=== PATIENT | male | born 1990 | race Caucasian/White ===

== ENCOUNTER 2025-02-26 10:10 | Emergency (ER) | payer OTHER ==
[2025-02-26] MEDS ORDERED: IBUP200C25 PO (10:19)
[2025-02-26] MEDS ORDERED: ISOVUE-370 76% 100 ML VIAL As Ordered ONE (11:10)
[2025-02-26 11:15] LABS: BASO # 0.0 10^3/uL (0.0-0.2); BASO % 0.8 % (0.0-1.0); EOS # 0.3 10^3/uL (0.0-0.5); EOS % 5.0 % (0.0-3.0); LYMPH # 1.9 10^3/uL (1.5-5.0); LYMPH % 37.3 % (24.0-44.0); MONO # 0.4 10^3/uL (0.0-0.8); MONO % 8.0 % (2.0-8.0); NEUTROPHILS # 2.4 10^3/uL (1.5-8.5); NEUTROPHILS % 48.7 % (36.0-66.0); PLATELET COUNT, AUTOMATED 193 10^3/uL (150-450)
[2025-02-26 11:50] LABS: CK-MB VALUE MASS 1.0 NG/ML (<3.6)
[2025-02-26 11:52] LABS: ALT/SGPT 17 U/L (7.0-40); AST/SGOT 17 U/L (<34); CALCIUM LEVEL 8.6 MG/DL (8.5-10.1); CARBON DIOXIDE LEVEL 25 MMOL/L (20-31); CHLORIDE LEVEL 108 MMOL/L (98-107); CREATININE FOR GFR 0.73 MG/DL (0.70-1.30); GLOMERULAR FILTRATION RATE > 90.0 (>60); POTASSIUM SERUM 4.4 MMOL/L (3.5-5.1); SODIUM LEVEL 143 MMOL/L (136-145)
[2025-02-26 11:54] LABS: FREE T4 1.04 NG/DL (0.89-1.76)
[2025-02-26 11:55] LABS: CPK CREATINE PHOSPHOKINASE 88 U/L (46-171); MB/CK RELATIVE INDEX 1.13 (< OR =4)
[2025-02-26 12:45] VITALS: BP 121/80; O2SAT 98
[2025-02-26 13:07] VITALS: TEMP 97.1
== END 2025-02-26 13:08 | disposition home or self-care (01) ==
LOC: M ED 10:10
DX: F41.0 Panic disorder [episodic paroxysmal anxiety] (principal); I45.10 Unspecified right bundle-branch block; Z88.0 Allergy status to penicillin; F17.290 Nicotine dependence, other tobacco product, uncomplicated
CPT/HCPCS: 36415; 71045; 71275; 80047; 80048; 80076; 82550; 82553; 83690; 84439; 84443; 84484; 85025; 93005; 93041; 94760; 99285; Q9967